=== PATIENT | male | born 1945 | race Caucasian/White ===

== ENCOUNTER → 2017-11-26 | Outpatient (CLI) | payer MEDICARE | END | disposition home or self-care (01) | LOC: RAD 09:08 | PROVIDERS: ATTEND Surgery | DX: E04.1 Nontoxic single thyroid nodule (principal); E07.9 Disorder of thyroid, unspecified | CPT/HCPCS: 76942 ==

== ENCOUNTER → 2017-11-26 | Outpatient (CLI) | payer MEDICARE | END | disposition home or self-care (01) | LOC: RAD 09:11 | PROVIDERS: ATTEND Surgery | DX: E21.0 Primary hyperparathyroidism (principal) | CPT/HCPCS: 78070; 88172; 88173; A9500 ==

== ENCOUNTER 2019-11-13 09:53 | Outpatient (CLI) | payer MEDICARE | END 2019-11-13 23:59 | disposition home or self-care (01) | LOC: CFH 09:53 | PROVIDERS: ATTEND Nurse Practitioner Family | DX: M85.88 Other specified disorders of bone density and structure, other site (principal) | CPT/HCPCS: 77080 ==

== ENCOUNTER → 2019-12-11 | Outpatient (CLI) | payer MEDICARE | END | disposition home or self-care (01) | LOC: CVU 09:34 | PROVIDERS: ATTEND Internal Medicine Cardiovascular Disease | DX: I35.8 Other nonrheumatic aortic valve disorders (principal); I10 Essential (primary) hypertension | CPT/HCPCS: 93306 ==

== ENCOUNTER → 2020-03-07 | Outpatient (CLI) | payer MEDICARE ==
[~2020-03-07] MED LIST: REGADENOSON 0.4 MG/5 ML SYRINGE ONE
== END | disposition home or self-care (01) ==
LOC: CFH 08:08
PROVIDERS: ATTEND Internal Medicine Cardiovascular Disease
DX: I10 Essential (primary) hypertension (principal); R94.31 Abnormal electrocardiogram [ECG] [EKG]
CPT/HCPCS: 78452; 93017; A9502; J2785